=== PATIENT | male | born 1955 | race Caucasian/White ===

== ENCOUNTER 2021-08-10 23:11 | Emergency (ER) | payer MEDICARE, OTHER ==
[~2021-08-10] VITALS: Ht 172.7 cm; Wt 83.2 kg
[2021-08-10] MEDS ORDERED: dorzolamide 2% ophthalmic drops 10ml LEFTEYE STA (23:29)
[2021-08-10] MEDS ORDERED: brimonidine 0.2% 5 ML ophthalmic drops LEFTEYE STA (23:30)
[2021-08-10] MEDS ORDERED: pilocarpine 2% ophthalmic drops 15ml LEFTEYE ONE (23:30)
[2021-08-10] MEDS ORDERED: timolol 0.5% ophthalmic solution 5ml bottle LEFTEYE ONE (23:30)
[2021-08-10] MEDS ORDERED: acetaZOLAMIDE 250mg tablet PO ONE (23:30)
[2021-08-10] MEDS ORDERED: acetaZOLAMIDE 500mg capsule.SA PO ONE (23:45)
[2021-08-11 03:32] VITALS: BP 188/118
== END 2021-08-11 03:30 | disposition left against medical advice (07) ==
LOC: ER 23:12
DX: H40.212 Acute angle-closure glaucoma, left eye (principal); H57.12 Ocular pain, left eye; H53.8 Other visual disturbances; Z98.890 Other specified postprocedural states
CPT/HCPCS: 99291; 99292